=== PATIENT | female | born 1990 | race Two or more races ===

== ENCOUNTER → 2022-01-08 | Outpatient (AMB) | payer MEDICAID, SELFPAY ==
--- NOTE | 2022-01-08 15:27 | RT.TREATMENT ---
RT Treatment RT Note RT Note: EEG completed at this time, waiting to be read. Office Procedures RT Procedures Procedures EEG Extended Monitoring Awake/Drowsy: Yes
== END | disposition home or self-care (01) ==
LOC: HODRTX 14:31
PROVIDERS: PCP Psychiatry & Neurology Neurology; Visit Provider Psychiatry & Neurology Neurology
DX: G40.909 Epilepsy, unspecified, not intractable, without status epilepticus (principal)

== ENCOUNTER → 2024-12-08 | Outpatient (CLI) | payer MEDICAID, SELFPAY ==
--- NOTE | 2024-12-08 08:17 | XR_ITS ---
Examination: Shoulder,left, 3 views Technique: Shoulder AP internal rotation, AP external rotation, Y view shoulder, 3 views Exam date and time :December 08, 2024 at 0829 hours INDICATIONS: Left shoulder pain beginning 2 weeks ago. FINDINGS: Mild osteopenia. No shoulder fracture or dislocation Moderate narrowing glenohumeral joint IMPRESSION: Moderate narrowing glenohumeral joint
== END | disposition home or self-care (01) ==
LOC: CDIM 08:13
PROVIDERS: PCP Physician Assistant; Referring Provider Physician Assistant; Visit Provider Physician Assistant
DX: M25.512 Pain in left shoulder (principal); M25.812 Other specified joint disorders, left shoulder
CPT/HCPCS: 73030

== ENCOUNTER 2025-04-24 14:45 | Emergency (ER) | payer MEDICAID, SELFPAY ==
[2025-04-24 14:46] VITALS: BMI 46.0
[2025-04-24 15:14] VITALS: BP 136/85; PULSE 91; RESP 16; TEMP 36.9; O2SAT 98
--- NOTE | 2025-04-24 15:23 | XR_ITS ---
Examination: CT abdomen and pelvis without contrast. Coronal 3-D reconstructions. Sagittal 2-D reconstructions. Date and time of exam: April 25, 2025, 1647 hours COMPARISON: 2022 INDICATIONS: Abdominal pain left-sided flank pain beginning 4 days ago, history bilateral renal calculi, atrophic left kidney mild right hydronephrosis history right ureteral stent on CT stone study September 10, 2022 CTDI: vol (mGy): 17.9 DLP: (mGycm): 1162 Technique: Axial images of the abdomen have been obtained, 3 mm slice thickness Intravenous contrast material has not been administered. Low dose protocols were performed. One or more of the following dose reduction techniques were used; automated exposure control, adjustment of the mA and/or KV according to patient size, use of iterative reconstruction technique. Findings: No focal liver or splenic lesions No gallstones No pancreatic or adrenal mass Severely atrophic left kidney with mild left hydronephrosis Numerous bilateral renal calculi ranging in size from 1 mm to 8 mm Perinephric stranding No ureteral calculi Normal appendix Anteverted uterus Mild diffuse lumbar disc narrowing No bladder mass or bladder calculi IMPRESSION: Severely atrophic left kidney with minimal dilatation left renal calyces, consider urinary tract infection Numerous bilateral renal calculi, perinephric stranding No ureteral calculi
--- NOTE | 2025-04-24 15:43 | EDRME_ITS ---
Rapid Medical Screening Exam [facility] Arrival date/time: 04/24/25 14:45 35-year-old female with no known medical history presents to the emergency room with a chief complaint of left lower flank pain x 2 days I have greeted and performed a focused initial assessment of this patient. A comprehensive ED assessment and evaluation of the patient, analysis of all test results, and completion of the medical decision making process will be conducted by additional ED providers. Chief Complaint: Abdominal Pain Time Seen by Provider: 04/24/25 15:00 Vital signs: Vital Signs Temperature 98.4 F 04/24/25 15:14 Pulse Rate 91 04/24/25 15:14 Respiratory Rate 16 04/24/25 15:14 Blood Pressure 136/85 H 04/24/25 15:14 Pulse Oximetry (%) 98 04/24/25 15:14 Oxygen Delivery Method Room Air 04/24/25 15:14 Vital signs reviewed by provider: Yes Exam: Left CVA tenderness with palpation, left lower quadrant abdominal pain with palpation Strong and regular rhythm. Clear bilateral lung sounds Clinical Impression: Renal calculi/UTI/pyelonephritis
[2025-04-24 15:54] LABS: Collection Type, Urine Clean Catch
[2025-04-24 15:57] LABS: Basophils # (Auto) 0.2 Thou/mm3 (0.0-0.2); Basophils % (Auto) 1 % (0-2.5); Eosinophils # (Auto) 0.4 Thou/mm3 (0.0-0.5); Eosinophils % (Auto) 3 % (0-10); Hematocrit 39.9 % (36.0-46.0); Hemoglobin 12.5 g/dL (12.0-16.0); Immature Granulocytes Auto 0.04 Thou/mm3 (0.00-0.00); Lymphocytes # (Auto) 4.5 Thou/mm3 (1.0-4.8); Lymphocytes % (Auto) 32 % (10-50); Mean Corpuscular HGB Conc 31.3 g/dl (31.0-37.0); Mean Corpuscular Hemoglobin 24.6 pg (25.0-35.0); Mean Corpuscular Volume 79 fL (80-100); Monocytes # (Auto) 1.0 Thou/mm3 (0.0-0.8); Monocytes % (Auto) 7 % (0-12); Neutrophils # (Auto) 7.7 Thou/mm3 (1.8-7.7); Neutrophils % (Auto) 56 % (37-80); Nucleated Red Blood Cell # 0.00 Thou/mm3 (0.00-0.00); Nucleated Red Blood Cell % 0 /100 WBC (0); Platelet Count 332 Thou/mm3 (140-440); RDW Standard Deviation 44.5 fL (36.4-46.3); Red Blood Count 5.08 Miln/mm3 (4.00-5.20); White Blood Count 13.8 Thou/mm3 (3.6-11.0)
[2025-04-24 16:27] LABS: Alanine Aminotransferase 12 U/L (10-49); Albumin, Serum 4.6 gm/dL (3.5-5.0); Albumin/Globulin Ratio 1.6 (1.2-2.2); Alkaline Phosphatase 57 U/L (46-116); Anion Gap 9 (7-16); Aspartate Amino Transferase 16 U/L (0-34); BUN/Creatinine Ratio 15 Ratio (12-20); Bilirubin,Total 0.3 mg/dL (0.3-1.2); Blood Urea Nitrogen 16 mg/dL (9-23); Calcium 9.1 mg/dL (8.3-10.6); Calcium (Corrected) 9.1 mg/dL (8.5-10.1); Carbon Dioxide 24.0 mMol/L (20.0-31.0); Chloride 108 mMol/L (98-107); Creatinine (Component) 1.1 mg/dL (0.6-1.3); Estimated Creatinine Clearance 97.4 mL/min (>60); Globulin 2.9 gm/dL (2.3-3.5); Glucose 90 mg/dL (74-106); Lipase 97 U/L (12-53); Osmolality,Calculated 282 (275-295); Potassium 3.4 mMol/L (3.4-5.1); Sodium 141 mMol/L (136-145); Total Protein 7.5 gm/dL (5.7-8.2); eGFR > 60 See Note
[2025-04-24 16:28] LABS: HCG Qualitative,Urine Negative
[2025-04-24 16:30] LABS: Bacteria,Urine Rare; Bilirubin,Urine Negative (Negative); Blood,Urine Negative (Negative); Clarity,Urine Turbid (Clear/Hazy); Color,Urine Lt-Yellow (Lt Yel-Yel); Glucose, Urine Negative (Negative); Ketones,Urine Negative (Negative); Leukocyte Esterase,Urine Positive (Negative); Nitrite,Urine Negative (Negative); PH,Urine 6.5 (5.0-7.0); Protein,Urine Negative (Neg - Trace); RBC,Urine 1 /hpf (0-3); Specific Gravity,Urine 1.009 (1.001-1.035); Squamous Epithelial Cell,Urine 9 /hpf (0-5); Urobilinogen,Urine Negative mg/dL (0.0-1.0); WBC,Urine 11 /hpf (0-5)
--- NOTE | 2025-04-24 19:07 | PD.EDABDPN ---
ED Abdominal Pain RME/HPI General Chief Complaint: Abdominal Pain Stated complaint: LEFT KIDNEY PAIN x 3 DAYS Time seen by provider: 04/24/25 15:00 Arrival date/time: 04/24/25 14:45 RME / HPI RME / HPI narrative: 04/24/25 14:45 35-year-old female with no known medical history presents to the emergency room with a chief complaint of left lower flank pain x 2 days I have greeted and performed a focused initial assessment of this patient. A comprehensive ED assessment and evaluation of the patient, analysis of all test results, and completion of the medical decision making process will be conducted by additional ED providers. Dr. Ozuna?s Main ED Evaluation: 35yo female presenting with onset left lower paralumbar pain radiating to the left buttock and left knee 2 weeks [employer] of constant nature. No LE weakness, sacral paresthesias, or urinary/bowel incontinence. No recent strenuous activity. Patient also notes having higher left flank pain x 3-4 days [employer]. Patient was started on empiric antibiotics by her PMD after she developed UTI-like symptoms. No fever or chills. No V/D. PMH includes occasional UTI/urolithiasis requiring stent placement, IDDM, no HTN. Related Data Home Medications ?Medication ?Instructions ?Recorded ?Confirmed levetiracetam 750 mg tablet 750 mg PO BID #0 tabs 08/06/15 08/22/22 (Keppra) topiramate 200 mg tablet (Topamax) 200 mg PO BID #0 tabs 11/05/15 08/22/22 insulin glargine U-300 conc 300 35 unit subcut QDAY 08/21/22 08/21/22 unit/mL (3 mL) subcutaneous pen (Toujeo Max U-300 SoloStar) insulin lispro 100 unit/mL 15 unit subcut TID 08/21/22 08/21/22 subcutaneous pen (Admelog SoloStar U-100 Insulin lispro) Previous Rx's ?Medication ?Instructions ?Recorded ciprofloxacin HCl 500 mg tablet 500 mg PO BID #14 tabs 08/22/22 (Cipro) hydrocodone 5 mg-acetaminophen 325 1 tab PO Q6H PRN pain #30 tabs 08/22/22 mg tablet ciprofloxacin HCl 500 mg tablet 500 mg PO BID 7 days #14 tabs 04/24/25 (Cipro) cyclobenzaprine 10 mg tablet 10 mg PO BID 7 days #14 tabs 04/24/25 hydrocodone 5 mg-acetaminophen 325 1 tab PO Q8H PRN pain #20 tabs 04/24/25 mg tablet naproxen 250 mg tablet 250 mg PO BID PRN pain 3 days #6 04/24/25 tabs Allergies Allergy/AdvReac Type Severity Reaction Status Date / Time No Known Allergies Allergy Verified 04/24/25 14:48 Review of Systems Review of Systems Systems Reviewed: All systems reviewed, normal except as documented Past Medical History Past Medical History NEUROLOGIC: Positive Neurological Disorders, Seizures and Epilepsy CARDIAC: Negative Cardiac Disorders or Congestive Heart Failure RESPIRATORY: Negative Chronic Obstructive Pulmonary Disease (COPD) or Asthma GASTROINTESTINAL: Positive Gastrointestinal Disorders and Obesity GENITOURINARY: Positive Genitourinary Disorders and Kidney Stones; Negative Renal Disease REPRODUCTIVE: Negative Previous Pregnancies MUSCULOSKELETAL: Negative Musculoskeletal Disorders ENDOCRINE: Positive Endocrine Disorders and Diabetes Mellitus Type 2; Negative Diabetes Mellitus Type 1 HEMATOLOGIC: Negative Blood Disorders or Sickle Cell Disease OTHER HISTORY: Positive Hospitalization (kidney stones); Negative Autoimmune Disease, Shingles, Blood Transfusions, Anesthesia Reactions, MRSA, Clostridium Difficile or Cancer Family History FAMILY HISTORY: Negative Family Psychiatric Problems, Family Respiratory Disorders, Family Cardiac Disorders, Family Gastrointestinal Problems, Family Cancer, Family Surgery or Family Anesthesia Reaction Surgical History SURGICAL: Negative Cardiac Surgery, Endocrine Surgery, Ear Surgery, Abdominal Surgery, Joint Replacement or Neurologic Surgery Social History SMOKING STATUS: Never smoker ED Exam Narrative Physical exam: GENERAL APPEARANCE: alert and oriented x 4, well-developed, well-nourished, complains of left lower paralumbar pain, no acute distress VITALS: All vitals were reviewed and the pulse ox is 98% on room air, which is normal according to my interpretation. Notably hypertensive. HEENT: Normocephalic, atraumatic; pupils equal, round, reactive to light; EOMI; mucous membranes pink, moist; oropharynx clear NECK: Supple LUNGS: CTABL; no wheezes, no rales, no rhonchi HEART: Regular rate, regular rhythm; normal S1, S2; no murmurs ABDOMEN: non distended; obese, soft, no tenderness, no guarding BACK: no CVA tenderness EXTREMITIES: atraumatic; no edema NEUROLOGIC: awake; alert and oriented x4; cranial nerves II-XII grossly intact; no focal sensory or motor deficits; + straight leg raise to the LLE, gait not observed PSYCHIATRIC: appropriate mood and affect SKIN: warm, dry, normal color; no rashes Course Quality Measures none Orders Category Date Time Status CT abdomen pelvis wo con Stat Exams 04/24/25 15:23 Completed CBC Stat Lab 04/24/25 15:37 Completed CMP [Comprehensive Metabolic Panel] Stat Lab 04/24/25 15:37 Completed HCG Qualitative,Urine Stat Lab 04/24/25 15:30 Completed Lipase Stat Lab 04/24/25 15:37 Completed UA [Urinalysis] Stat Lab 04/24/25 15:30 Completed Urine Culture Stat Lab 04/24/25 15:30 Received HYDROcodone*/APAP 5/325 [[place] 5/325] Med 04/24/25 19:23 Discontinued 1 tab PO X1 ONE cefTRIAXone [Rocephin] 1,000 mg Med 04/24/25 19:23 Discontinued Lidocaine 1% 20 ml [Xylocaine 1% 20 ML] 2.1 ml IM X1 Vital Signs Vital signs: Vital Signs Temperature 98.4 F 04/24/25 15:14 Pulse Rate 91 04/24/25 15:14 Respiratory Rate 16 04/24/25 15:14 Blood Pressure 136/85 H 04/24/25 15:14 Pulse Oximetry (%) 98 04/24/25 15:14 Oxygen Delivery Method Room Air 04/24/25 15:14 Abdominal Pain MDM MDM Narrative MDM Narrative:: Scribe Attestation: 04/24/25 - Jelly Sheppard am scribing for and in the presence of Dr. Ozuna. 35yo female presenting with onset left lower paralumbar pain radiating to the left buttock and left knee 2 weeks [employer] of constant nature. No LE weakness, sacral paresthesias, or urinary/bowel incontinence. No recent strenuous activity. Patient also notes having higher left flank pain x 3-4 days [employer]. Please see PE findings. CT abdomen pelvis demonstrates atrophic left kidney with slight dilation of the renal calyces and ureter, suggestive of UTI. Lab markers including CBC and chemistries are unremarkable. UA is equivocal for infection. Patient's initial clinical symptoms are suggestive of left lumbar radiculopathy secondary to sciatica. Upon further inquire, patient does indicate that she has been notified she has hypertension, but has not been treated for it. Will prescribe hypertensive therapy, give a dose of IM Rocephin, and discharge home on a combination of muscle relaxants, analgesics, and antibiotic. Dx: sciatica, ascending UTI Patient data External records reviewed:: [facility] previous records (Per chart review, patient was admitted here on 04/09/22 for atrophy of the left kidney.) Clinical information provided by:: patient Social determinants that could affect healthcare access:: none Patient has the following chronic illnesses:: DM How is presenting disease/condition affected by chronic disease/condition?: uneffected by Evaluation data The following diagnostics were reviewed and interpreted by me:: lab results and radiology exam(s) Lab and/or radiology exams considered but not ordered:: none Interpretation Summary: [facility] Report Signed Patient: SHERWIN HUNT Record#: [id number] Birthdate: 1990 Age/Sex: 35 / F Location: [facility] Attending Dr: Ordering Physician: Mau Valentin Date of Service: 04/24/25 Procedure(s): CT abdomen pelvis wo con Accession Number(s): [id number] cc: Mau Valentin; Heavenly Abel; Garfield Freire MD~ Examination: CT abdomen and pelvis without contrast. Coronal 3-D reconstructions. Sagittal 2-D reconstructions. Date and time of exam: April 25, 2025, 1647 hours COMPARISON: 2022 INDICATIONS: Abdominal pain left-sided flank pain beginning 4 days ago, history bilateral renal calculi, atrophic left kidney mild right hydronephrosis history right ureteral stent on CT stone study September 10, 2022 CTDI: vol (mGy): 17.9 DLP: (mGycm): 1162 Technique: Axial images of the abdomen have been obtained, 3 mm slice thickness Intravenous contrast material has not been administered. Low dose protocols were performed. One or more of the following dose reduction techniques were used; automated exposure control, adjustment of the mA and/or KV according to patient size, use of iterative reconstruction technique. Findings: No focal liver or splenic lesions No gallstones No pancreatic or adrenal mass Severely atrophic left kidney with mild left hydronephrosis Numerous bilateral renal calculi ranging in size from 1 mm to 8 mm Perinephric stranding No ureteral calculi Normal appendix Anteverted uterus Mild diffuse lumbar disc narrowing No bladder mass or bladder calculi IMPRESSION: Severely atrophic left kidney with minimal dilatation left renal calyces, consider urinary tract infection Numerous bilateral renal calculi, perinephric stranding No ureteral calculi Dictated By: Garfield Freire MD Signed By: <Electronically signed by Garfield Freire MD in OV> 04/24/25 1717 Medications / Prescriptions Medications or Prescriptions considered but not ordered:: none Medication administrations:: Medication Administration History Discontinued Medications Hydrocodone Bitart/Acetaminophen (Hydrocodone/Apap 5/325 Tablet) 1 tab PO X1 ONE Stop: 04/24/25 19:24 Ceftriaxone Sodium 1,000 mg/ (Lidocaine HCl 2.1 ml) 0 mg IM X1 ONE Stop: 04/24/25 19:24 see above Consultations Consultation(s) initiated? (list below): No Diagnosis Differential diagnosis abdominal pain: calculus of kidney and other (cystitis, UTI, pyelonephritis, sciatica, muscle strain) Most likely diagnosis given after review of the tests above:: see clinical impression below Admission Indicated Admission indicated?: not indicated Admission Request Was there a request for admission?: No Disposition Plan Disposition Plan: Discharge Discharge Attestation Discharge Attestation: The patient and all family members were given an opportunity to ask questions and understood the discharge instructions. Discharge instructions specifically effects, indications for sooner follow up or return to the emergency department, and the expected course of current diagnosis. Patient condition: Stable Discharge Plan Plan Patient Disposition: HOME (Self Care) Discharge Disposition comment: Stable Prescriptions/Referrals Prescriptions/Med Rec: New ciprofloxacin HCl [Cipro] 500 mg tablet 500 mg PO BID 7 Days Qty: 14 0RF hydrocodone-acetaminophen 5-325 mg tablet 1 tab PO Q8H MDD 3 tab PRN (Reason: pain) Qty: 20 0RF cyclobenzaprine 10 mg tablet 10 mg PO BID 7 Days Qty: 14 0RF naproxen 250 mg tablet 250 mg PO BID PRN (Reason: pain) 3 Days Qty: 6 0RF No Action levetiracetam [Keppra] 750 MG tablet 750 mg PO BID Qty: 0 topiramate [Topamax] 200 MG tablet 200 mg PO BID Qty: 0 insulin lispro [Admelog SoloStar U-100 Insulin] 100 unit/mL Insulin Pen 15 unit SUBCUT TID Jannie Max U-300 SoloStar 300 unit/mL (3 mL) Insulin Pen 35 unit SUBCUT QDAY ciprofloxacin HCl [Cipro] 500 mg tablet 500 mg PO BID Qty: 14 0RF hydrocodone-acetaminophen 5-325 mg tablet 1 tab PO Q6H MDD 4 PRN (Reason: pain) Qty: 30 0RF Referrals: Heavenly Abel [Primary Care Provider] - In 1 week Problem List Clinical Impression: Urinary tract infection, Renal colic, Acute left lumbar radiculopathy Patient/Caregiver Discharge Instructions Discharge Activity: activity as tolerated Other Activity Instructions:: No heavy lifting pushing pulling etc. Medication as directed. Education Materials: Relieving Back Pain, Urinary Tract Infections in Women, Sciatica Additional Instructions: Force fluids/medications as directed/employee gentle massage, whirlpool therapy, medication as directed. Follow-up with primary care in 5 to 7 days. Return if worsening symptoms. Print Language: Faroese Stand Alone Forms: [facility] Award Info., Patient Portal Info Letter
[2025-04-24 19:10] VITALS: BP 153/101; PULSE 80; RESP 18; TEMP 36.6; O2SAT 100
[2025-04-24] MEDS: cefTRIAXone 1,000 MG, LIDOCAINE 1% 20 ML 2.1 ML IM (19:31)
[2025-04-24] MEDS: HYDROcodone/APAP 5/325 TABLET 1 TAB PO (19:32)
== END 2025-04-24 19:56 | disposition home or self-care (01) ==
PROVIDERS: Nurse Practitioner Family; Emergency Provider Emergency Medicine; PCP Physician Assistant
DX: N13.6 Pyonephrosis (principal); M54.16 Radiculopathy, lumbar region; E11.9 Type 2 diabetes mellitus without complications; Z79.4 Long term (current) use of insulin; Z87.440 Personal history of urinary (tract) infections; Z96.60 Presence of unspecified orthopedic joint implant; Z87.442 Personal history of urinary calculi
CPT/HCPCS: 36415; 74176; 80053; 81001; 81025; 83690; 85025; 87077; 87086; 87186; 96372; 99283; J0696; J3490; A9270